=== PATIENT | male | born 1970 | race Caucasian/White ===

== ENCOUNTER 2024-08-31 21:16 | Inpatient (IN) | payer OTHER, SELFPAY ==
[2024-08-31 22:35] VITALS: TEMP 32
[2024-08-31 22:40] VITALS: BP 104/63; PULSE 76; RESP 31; TEMP 36.4; TEMP 36.7; O2SAT 95; O2SAT 96
[2024-08-31 22:43] VITALS: BP 104/63; PULSE 61; PULSE 73; RESP 25; O2SAT 95
--- NOTE | 2024-08-31 22:51 | HPE_ITS ---
Date of service: 08/31/24 Time of Service: 22:51 Assessment and Plan Assessment and plan (1) Flu: Status: Acute Assessment and plan: Influenza, complicated (apparently ) by COPD andd perhqaps pneumonia. Will continue Tamiflu and dual antibiotics, and will obtain CXR so that we have on site imaging. As to COPD, clinically appears well controlled, will not continue steroids at this point, use scheduled duonebs for now. The AF appears to be incidental, and auto rate controlled; as above not a candidate for anticoagulation. 1.Flu: Tamiflu 2. COPD: duonebs, consider steroids 3. Pneumonia?: continue Zithro and Rocephin for now; CXR 4. EtOH history: does not appear to be in active withdrawal. Monitor and place on CIWA with prn benzos History of Present Illness History of Present Illness Chief Complaint: cough, SOB Narrative: 53 male smoker with h/o alcohol abuse, bipolar, chronic pain, PTSD, prior h/o seizures Seen [facility] 3 days [facility], Flu+ but left before being seen. Returned one day [facility] with cough and SOB. W/U of note for desatrurations, + flu and possible pulmo nary infiltrates. Patient was treated with Tamiflu, Rocpehin and Zithro. Patient also received one time dose Solumedrol along with duonebs. Was on BiPap for a period of time but was not tolerating this and then had episode of vomiting (no report of aspiration), and was transitioned to high flow cannula with satisfactory saturations. Incidental finding of AF with auto rate control. [id number] score zero, no anticoagulation given. Patient was in ED hold >24 hours. Due to lack of bed availability he is accepted in transfer here. States he feels better than when he first presented, though not to baseline. States last drink 2 days ago, and has never had issue with withdrawal. Review of Systems Narrative: per HPI PFSH All Active Problems (Updated 08/31/24 @ 23:03 by Dandy Huynh MD) Flu (Acute) Social History Smoking/Tobacco Use Status: Current every day Smoking risk assessment performed?: Yes Meds Allergies and Home Medications Allergies Allergy/AdvReac Type Severity Reaction Status Date / Time cat dander Allergy Unknown Verified 08/31/24 22:55 Penicillins Allergy Unknown Verified 08/31/24 22:55 Home Medications ?Medication ?Instructions ?Recorded ?Confirmed ?Type Unknown [No Known Home Meds] 08/31/24 08/31/24 History Exam Narrative Exam Narrative: 104/63, 72, 96.4, 23, 96% HCNC. HEENT atraumatic; neck supple; lungs clear; heart irr/irr; abdomen soft and NT; extremities w/o edema; neuro Ox3, seems somewhat anxious but lucid and appropriate, moves all 4s, no tremor, asterixis or adventitial movements Time Spent Time spent with Patient: 55-74 minutes Time was spent: preparing to see the patient(eg.review tests), obtaining and/or reviewing separately otained hiistory, ordering medications,tests, procedures, referring, communicating with other health resident care assistant and indepentently interpreting results
--- NOTE | 2024-08-31 23:31 | DI.RAD_ITS ---
Exam(s) XR PORTABLE CHEST AP EXAM: XR PORTABLE CHEST AP CLINICAL HISTORY: pneumonia, hypoxia, influenza. TECHNIQUE: 2D digital imaging was performed. COMPARISON: No exams were available for comparison FINDINGS: Single AP portable view. Heart size is upper normal. The mediastinum is not widened. There are extensive bilateral interstitial and partially confluent infiltrates. No obvious pleural e ffusions evident on this AP portable view. IMPRESSION: Extensive bilateral interstitial and partially confluent infiltrates.No obvious pleural effusions. Upper normal heart size. No pleural effusions. DATA REPOSITORY: RADIATION DOSE DELIVERED:
[2024-09-01] VITALS (38 sets, daily range): BP systolic 81–120; BP diastolic 54–80; PULSE 53–103; RESP 9–32; TEMP 31–37; O2SAT 91–100
[2024-09-01] MEDS: Acetaminophen 325 MG TAB 650 MG PO ×2 (00:29→20:19)
[2024-09-01] MEDS: cefTRIAXone 1,000 MG in Normal Saline 50 ML 100 MG IVPB (00:29)
[2024-09-01] MEDS: Aspirin 325 MG TAB PO (00:30)
[2024-09-01] MEDS: diphenhydrAMINE 25 MG CAP PO ×2 (00:30→20:19)
--- NOTE | 2024-09-01 00:40 | DI.VRAD_ITS ---
PROCEDURE INFORMATION: Exam: XR Chest Exam date and time: 08/31/2024 11:25 PM Age: 53 years old Clinical indication: Other: Acute hypoxic resp failure; Pneumonia, hypoxia, influenza TECHNIQUE: Imaging protocol: Radiologic exam of the chest. Views: 1 view. COMPARISON: No relevant prior studies available. FINDINGS: Lungs: Diffuse interstitial opacities throughout both lungs, with more confluence, possibly airspace opacity, in the mid right lung. Findings are most compatible with severe hydrostatic interstitial pulmonary edema/CHF, possibly with superimposed pneumonia. Pleural spaces: Unremarkable. No pleural effusion. No pneumothorax. Heart/Mediastinum: Unremarkable. No cardiomegaly. Bones/joints: Unremarkable. IMPRESSION: Diffuse interstitial opacities throughout both lungs, with more confluence, possibly airspace opacity, in the mid right lung. Findings are most compatible with severe hydrostatic interstitial pulmonary edema/CHF, possibly with superimposed pneumonia. Dictated and Authenticated by: Bob Isidro MD. Orderin Lino Dorman MD
[2024-09-01] MEDS: AZITHROMYCIN 250 MG in Normal Saline 250 ML IVPB (03:06)
[2024-09-01] MEDS: Normal Saline Flush 10 ML SYR ×2 (04:26→19:27)
[2024-09-01] MEDS: Azithromycin 500 MG VIAL (04:26)
[2024-09-01] MEDS: Water,Injection,Sterile 10 ML VIAL (04:28)
[2024-09-01] MEDS: Normal Saline 250 ML (04:28)
[2024-09-01] MEDS: Albuterol/Ipratropium 3 ML UPD VIAL UPD ×3 (05:10→17:19)
[2024-09-01 06:05] LABS: HCT 44.4 % (40.0-50.0); HGB 15.5 g/dL (13.5-17.5); MCH 32.2 pg (27.0-33.0); MCHC 34.9 % (32.0-36.0); MCV 92 fL (80-95); MPV 10.9 fL (8.0-11.0); Platelet Count 111 10^3/uL (130-400); RBC 4.81 10^6/uL (4.36-5.78); RDW 12.9 % (11.8-14.1); RDW-SD 44.3 fL; WBC 3.54 10^3/uL (4.4-10.8)
[2024-09-01 06:20] LABS: BUN 22 mg/dL (7-18); CREATININE 0.9 mg/dL (0.70-1.30); Calcium 8.5 mg/dL (8.5-10.1); Chloride 105 mmol/L (98-107); Estimated GFR 101.49 (mL/min/1.73m2); Glucose 167 mg/dL (74-106); Potassium 4.5 mmol/L (3.5-5.1); Sodium 139 mmol/L (136-145)
[2024-09-01] MEDS: Enoxaparin 40 MG/0.4 ML SYR SC (08:33)
[2024-09-01] MEDS: Pantoprazole 40 MG TABCR PO (08:33)
[2024-09-01] MEDS: Oseltamivir 75 MG CAP PO ×2 (08:33→19:28)
--- NOTE | 2024-09-01 09:38 | INITIAL_ITS ---
Date of service: 09/01/24 Time of Service: 09:38 Care Management Initial Assmt Initial Assessment Reason for Hospitalization: Influenza and pneumonia Functional Status/Living Situation Patient Presentation: Jacques was lying in bed when CM met with him. He was pleasant in manner and agreeable to conversation. Jacques was admitted with Influenza and possible pneumonia. He is requiring highflow nasal oxygen to maintain his oxygen saturation levels in the 90s. Jacques informed that he had been sick for about a week and just kept getting worse. He went to [facility] yesterday where it was determined he needed hospitalization. Unfortunately [facility] had no beds so Jacques was transferred to [facility]. Jacques lives in [place] with his girlfriend Jermaine. He has 2 children; he has a son that he is close to and a daughter who needs help. Jacques also has a step daughter Paula that he is very close to and who came to visit today.. He works as a maple refrigeration service technician. He is independent with ADLs and does not need a cane or walker. 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 He reported that for many years he had to walk to and from work and it was [address]. Fortunately his girlfriend drives and has a care so transportation is easier now. Town of Residence: [place] Resides with: Other (girlfriend Jermaine) Significant Other/Family: Local Natural Supports: family Employment Status: Employed (maple refrigeration service technician) Instrumental Activities of Daily Living (ADLs): Independent Medications Medication Management: No Issues/Barriers identified Advance Directives Advance Directives: Do you have an Advance Directive: N 08/31/24 21:30 AD On File at [facility]: N 08/31/24 21:30 Date Asked 08/31/24 08/31/24 21:30 AD Date Reviewed COLST On File at [facility] COLST Date Scanned Code Status Resuscitation Status Full Code Portal Pt does not currently have a portal and education provided: No Portal Education: Patient declined (not from area) Insurance Coverage/Financial Issues Insurance: P Care Team Visit Care Team Role Provider Type Cal Ambriz DO Primary Care Provider NON-[facility] STAFF PHYSICIAN Dandy Huynh MD Admit Provider [facility] STAFF PHYSICIAN Attending Provider Discharge Potential Discharge Needs: PCP F/U Appt Anticipated Barriers to Discharge: None Identified Patient/Family Education Needs: Review discharge instructions, discuss Ask Me Three Transportation: Private vehicle Plan: Anticipate Dandy will be discharged home with no new services when medically cleared. He will follow up with his community providers and plan of care and transport with family. CM will follow and continue to assess for discharge needs. Social Determinants of Health Screening Social Determinants of Health last assessed: 09/01/24 Will the Patient Participate in the Screening?: Yes Do you worry about having a steady place to live?: no Problems where you live: mold In the past 12 months, have you had to go without electric, gas, oil or water in your home?: no Have you or anyone in your house had to go without enough food to eat?: no Has lack of transportation kept you from medical appointments or from doing things needed for daily living?: no Has anyone in your life made you feel unsafe or unsupported?: no How hard is it for you to pay for the very basics like food, housing, medical care, and heating? Would you say it is:: Not hard at all Do you want help finding or keeping work or a job?: I do not need or want help If for any reason you need help with day-to-day activities such as bathing, preparing meals, shopping, managing finances, etc., do you get the help you need?: I don?t need any help How often do you feel lonely or isolated from those around you?: Never Do you speak a language other than Wol[place] at home?: No Does the patient want assistance with any of the above?: No Social Determinants of Health Comments(SDGA Details): Pt reports ongoing mold issue in bathroom of his apartment that he manages himself Health Related Social Needs Health related social needs: inadequate housing (Z59.1) PFSH All Active Problems (Updated 09/01/24 @ 12:48 by Shivam Dickerson MD) Atrial fibrillation (Chronic) Pneumonia (Acute) Flu (Acute) Social History Smoking/Tobacco Use Status: Former Tobacco Use Quit Date: 08/15/24 Tobacco: How many years used: 45 Smoking risk assessment performed?: Yes Alcohol Intake: former Drug use: Daily Substance use type: marijuana Housing: apartment Do you feel safe at home: Yes Do you feel safe in your relationship?: Yes
--- NOTE | 2024-09-01 09:59 | W.NUTRFU ---
Date of service: 09/01/24 Time of Service: 09:59 Nutrition Note NOTE: pt in ICU - Influenza with COPD, PNA components. Not a lot of history on patient in chart and just admitted <24hours on precautions. Would expect lower appetite. Pt initially screened as low nutr risk With noted hx of etoh use would recommend thiamine, b12, magnesium, folate labs/repletions. would recommend 110mg zinc sulfate for immune support Will follow patient labs, weight, po intake and modify nutrition interventions as needed Time Spent in Nutritional Counseling and Treatment: 0
--- NOTE | 2024-09-01 10:30 | DI.US_ITS ---
APPROVED REPORT EXAM: Comprehensive 2D, Doppler, and color-flow Echocardiogram Patient Location: In-Patient Room/Bed: 219 Respiratory Therapist Assistant: Jermaine Bowers RDCS (AE) Indications: Afib Conclusion Normal left ventricular wall thickness and chamber size. Ejection fraction is 60%. Wall motion is n ormal Normal right ventricular size and function Mildly dilated left atrium. Normal right atrial size Aortic valve is sclerotic and trileaflet without stenosis or regurgitation Wall motion Left Ventricle The left ventricle is normal size. The left ventricular systolic function is normal. The left ventric ular ejection fraction is within the normal range. There is normal left ventricular wall thickness. T here is normal LV segmental wall motion. There is no ventricular septal defect visualized. LVEF is 60 %. Right Ventricle The right ventricle is normal size. The right ventricular systolic function is normal. Atria Left atrium is mildly dilated. The right atrium size is normal. The interatrial septum is intact with no evidence for an atrial septal defect. Aortic Valve The aortic valve is sclerotic Aortic valve is trileaflet. There is no aortic valvular stenosis. No ao rtic regurgitation is present. Mitral Valve The mitral valve is normal in structure. No evidence of mitral valve stenosis. Trace mitral regurgita tion. Tricuspid Valve The tricuspid valve is normal in structure. There is no tricuspid valve stenosis. There is no tricusp id valve regurgitation noted. Pulmonic Valve The pulmonary valve is normal in structure. There is no pulmonic valvular stenosis. There is no pulmo angelina valvular regurgitation. Great Vessels The aortic root is normal in size. Ascending aorta is not well visualized. Aortic arch is not well vi sualized. The IVC collapses <50% with inspiration. Pericardium There is no pericardial effusion. 2D Dimensions IVSD d PLAX 0.75 cm M: 0.6-1.2 Ao Root d 3.03 cm M: 3.1 - 3.7 LVPW d PLAX 0.65 cm M: 0.6 - 1.2 LVID d PLAX 5.29 cm M: 4.2 - 5.8 LVDs 3.57 cm M: 2.5 - 4.0 LV EF Teichholz 60.4 % FS 32.53 % LV EDV (Teich) 134.7 mL LV ESV (Teich) 53.3 mL Stroke Vol Index (Teich) 36.17 M-Mode TAPSE 2.53 cm (M/F) >1.7 Auto EF LV EDV A4C 133.5 mL LV EDV A2C 104.6 mL LV EDV BP 119.6 mL LV ESV A4C 53.1 mL LV ESV A2C 44.9 mL LV ESV BP 49.7 mL LVEF(%) A4C 60.2 % LVEF(%) A2C 57.1 % LVEF(%) BP 58.4 % LV SV A4C 80.4 ml LV SV A2C 59.7 ml LV SV BP 69.9 ml LV CO A4C 4.5 L/min LV CO A2C 4.0 L/min LV CO BP 4.3 L/min HR A4C 56.43 BPM HR A2C 67.17 BPM LV EDV Index (BP) LA Volume LA Length A4C 6.0 cm LA Length A2C 4.9 cm LA Area A4C s 25.21 cm2 LA Area A2C s 14.46 cm2 LA Vol A4C A-L 90.54 mL LA Vol A2C A-L 36.57 mL LA Vol Biplane A-L 63.7 mL LA Vol/BSA A4C A-L LA Vol/BSA A2C A-L LA Vol/BSA BP A-L 28.3 mL/m2 LA Vol A4C MOD 84.8 mL LA Vol A2C MOD 33.3 mL LA Vol BP MOD 58.5 mL RA Volume RA Area A4C 17.3 cm2 RA ESV A4C (A-L) 50.8mL RA Vol/BSA A4C A-L RA Length A4C 5.0 cm RA ESV A4C (MOD) 48.2mL LV Diastology MV E' medial 0.152 (>0.07 m/s) MV E Vmax 0.81 (0.4-1.3 m/s) MV E' lateral 0.149 (>0.1 m/s) Aortic Valve AoV Vmax 1.00 m/s LVOT Vmax 0.90 m/s AoV Peak Grad 4.0 mmHg LVOT Peak Grad 3.2 mmHg AoV Area (Vmax) 3.21 cm2 LVOT VTI 0.190 m AoV VTI 0.209 m LVOT Mean Grad 1.5 mmHg AoV Mean Jose. 0.67 m/s LVOT SV 68.00 mL AoV Mean Grad 2.1 mmHg LVOT Diam s 2.10 cm AoV Area (VTI) 3.26 cm2 AV Regurg Peak Gr. 4.03 mmHg Velocity Ratio 0.90 Pulmonary Valve RVOT Vmax 0.67 m/s RVOT Peak Gr. 1.8 mmHg RVOT VTI 0.143 m RVOT Mean Gr. 0.9 mmHg
--- NOTE | 2024-09-01 12:43 | W.PM.PROGNOT ---
Date of Service Date of service: 09/01/24 Time of Service: 12:44 Assessment and Plan Assessment and plan (1) Flu: Status: Acute Assessment and plan: Will continue with Tamiflu (2) Pneumonia: Status: Acute Assessment and plan: Pt is currently on zithromax and rocephin. Will recheck cbc/cmp/lactic acid (3) Atrial fibrillation: Status: Chronic Assessment and plan: Self resolution. Most likely 2/2 physiologic stress. Follow up in the outpatient setting. Will order a tsh for completeness Subjective Subjective Interval history since last seen: Pt seen and examined in the ICU this am. Pt did not have significant complaints at that time. POC d/w PT as well as with bedside nurse during ICU huddle Exam Narrative Exam Narrative: . HEENT atraumatic; neck supple; lungs clear; heart rrr no mrg at this time abdomen soft and NT; extremities w/o edema; neuro Ox3, seems somewhat anxious but lucid and appropriate, moves all 4s, no tremor, asterixis or adventitial movements Objective Last Vital Signs Temp 36.8 C 09/01/24 12:15 Pulse 61 09/01/24 12:01 Resp 22 09/01/24 12:01 BP 107/71 09/01/24 12:01 Pulse Ox 92 09/01/24 12:01 Laboratory Results - last 24 hr 09/01/24 05:09 WBC 3.54 L RBC 4.81 Hgb 15.5 Hct 44.4 MCV 92 MCH 32.2 MCHC 34.9 RDW 12.9 Plt Count 111 L MPV 10.9 Sodium 139 Potassium 4.5 Chloride 105 Carbon Dioxide 28.0 Anion Gap 6.0 BUN 22 H Creatinine 0.9 Est GFR (CKD-EPI 2020) 101.49 Glucose 167 H Calcium 8.5 Time Spent with Patient Time Spent with Patient: 35-49 minutes Time was spent: preparing to see the patient(eg.review tests), obtaining and/or reviewing separately otained hiistory, ordering medications,tests, procedures, referring, communicating with other health women's health care nurse practitioner, indepentently interpreting results, counseling the patient and care coordination
[2024-09-02] VITALS (52 sets, daily range): BP systolic 88–112; BP diastolic 49–79; PULSE 45–89; RESP 2–35; TEMP 31–37.5; O2SAT 89–100
[2024-09-02] MEDS: cefTRIAXone 1 GM/50 ML BAG IVPB (00:29)
[2024-09-02] MEDS: Albuterol/Ipratropium 3 ML UPD VIAL UPD ×5 (00:35→23:18)
[2024-09-02] MEDS: AZITHROMYCIN 250 MG in Normal Saline 250 ML IVPB (01:51)
[2024-09-02] MEDS: Normal Saline 250 ML (03:26)
[2024-09-02] MEDS: Azithromycin 500 MG VIAL (03:26)
[2024-09-02] MEDS: Normal Saline Flush 10 ML SYR (03:26)
[2024-09-02] MEDS: Water,Injection,Sterile 10 ML VIAL (03:27)
[2024-09-02 04:46] LABS: Lactate 1.8 mmol/L (<or=2.0)
[2024-09-02 04:53] LABS: Abs Immature Grans 0.11 10^3/uL (0.0-0.06); HCT 41.7 % (40.0-50.0); HGB 14.2 g/dL (13.5-17.5); MCHC 34.1 % (32.0-36.0); MCV 94 fL (80-95); MPV 10.7 fL (8.0-11.0); Platelet Count 153 10^3/uL (130-400); RBC 4.44 10^6/uL (4.36-5.78); RDW 13.1 % (11.8-14.1); RDW-SD 45.2 fL; WBC 8.15 10^3/uL (4.4-10.8)
[2024-09-02 05:19] LABS: ALT 294 U/L (16-63); AST 332 U/L (15-37); Albumin 2.1 g/dL (3.4-5.0); Alkaline Phosphatase 93 U/L (46-116); Anion Gap 4.7 mmol/L (3-11); BUN 21 mg/dL (7-18); CO2 29.3 mmol/L (21.0-32.0); CREATININE 0.8 mg/dL (0.70-1.30); Calcium 8.3 mg/dL (8.5-10.1); Chloride 106 mmol/L (98-107); Estimated GFR 105.17 (mL/min/1.73m2); Glucose 143 mg/dL (74-106); Potassium 4.5 mmol/L (3.5-5.1); Sodium 140 mmol/L (136-145); TSH (W/Ref FT4) 1.11 uIU/mL (0.36-3.74); Total Protein 5.4 g/dL (6.4-8.2)
[2024-09-02 05:33] LABS: Absolute Neutrophil Count 6.28 10^3/uL (1.2-6.7)
[2024-09-02 05:34] LABS: Absolute Lymphocyte Count 1.47 10^3/uL (1.2-3.4); Absolute Monocyte Count 0.41 10^3/uL (0.1-0.8); Atypical Lymphocytes % 4 %; Diff Comment Manual Differential; RBC Morphology Normal
[2024-09-02] MEDS: Pantoprazole 40 MG TABCR PO (08:26)
[2024-09-02] MEDS: Oseltamivir 75 MG CAP PO ×2 (08:26→20:09)
[2024-09-02] MEDS: Enoxaparin 40 MG/0.4 ML SYR SC (08:27)
--- NOTE | 2024-09-02 09:54 | CMPROGNOTE_ITS ---
Date of service: 09/02/24 Time of Service: 09:54 Care Management Progress Note Progress Note Text Progress Note Text: Dandy was sitting up in bed when CM met with him. He shared that he is feeling a bit better today. He got up in a chair for breakfast but was tired out by the activity and needed to rest. He is still on high flow nasal oxygen at 50 L/min with oxygen saturation in the mid to upper 90s. His CIWA scores have been 0 all day. CM will follow. Discharge Potential Discharge Needs: PCP F/U Appt Anticipated Barriers to Discharge: None Identified Patient/Family Education Needs: Review discharge instructions, discuss Ask Me Three Transportation: Private vehicle Plan: Anticipate Dandy will be discharged home with no new services when medically cleared. He will follow up with his community providers and plan of care and transport with family. CM will continue to assess for discharge needs. Social Determinants of Health Screening Social Determinants of Health last assessed: 09/02/24 Will the Patient Participate in the Screening?: Yes Do you worry about having a steady place to live?: no Problems where you live: mold In the past 12 months, have you had to go without electric, gas, oil or water in your home?: no Have you or anyone in your house had to go without enough food to eat?: no Has lack of transportation kept you from medical appointments or from doing things needed for daily living?: no Has anyone in your life made you feel unsafe or unsupported?: no How hard is it for you to pay for the very basics like food, housing, medical care, and heating? Would you say it is:: Not hard at all Do you want help finding or keeping work or a job?: I do not need or want help If for any reason you need help with day-to-day activities such as bathing, preparing meals, shopping, managing finances, etc., do you get the help you need?: I don?t need any help How often do you feel lonely or isolated from those around you?: Never Do you speak a language other than Maltese at home?: No Does the patient want assistance with any of the above?: No Social Determinants of Health Comments(SDOH Details): Pt reports ongoing mold issue in bathroom of his apartment that he manages himself Health Related Social Needs Health related social needs: inadequate housing (Z59.1)
--- NOTE | 2024-09-02 10:01 | PGE_ITS ---
Date of Service Date of service: 09/02/24 Time of Service: 10:01 Assessment and Plan Assessment and plan (1) Sepsis: Status: Acute Assessment and plan: - Patient met criteria for sepsis on admission with heart rate greater than 100, respiratory rate in the 20s, source of infection being a combination of influenza A positive and community-acquired pneumonia; did not meet criteria for severe sepsis as there were no signs of endorgan damage -Has been on Tamiflu, will continue -Has been on azithromycin and Rocephin, will continue (2) Flu: Status: Acute Assessment and plan: -Will continue with Tamiflu (3) Pneumonia: Status: Acute Assessment and plan: -Pt is currently on zithromax and rocephin, will continue (4) Acute respiratory failure with hypoxia: Status: Acute Assessment and plan: - Secondary to accommodation of influenza A positive, community-acquired pneumonia, and patient having stated he quit smoking about 2 weeks ago -Patient feels significantly less short of breath though has been on about 60% FiO2 on high flow nasal cannula -Wean as tolerated with a goal oxygen saturation greater than 92% (5) Atrial fibrillation: Status: Chronic Assessment and plan: -Present on admission, though resolved on its own -Most likely 2/2 physiologic stress. -Patient otherwise does not meet criteria for anticoagulation as his [id number]- VASc 2 score was 0 Subjective Subjective Interval history since last seen: Patient states that his breathing is better today but that he is rather tired. Otherwise he is no complaints or concerns at this time. Exam Narrative Exam Narrative: Well appearing gentleman sitting up in the chair in no acute distress, 63% HFNC in place, heart RRR, lungs CTAB, abdomen soft, non-tender, non-distended Objective Last Vital Signs Temp 97.7 F 09/02/24 08:30 Pulse 57 L 09/02/24 08:01 Resp 16 09/02/24 08:01 BP 111/59 L 09/02/24 08:01 Pulse Ox 92 09/02/24 08:01 Laboratory Results - last 24 hr 09/02/24 04:35 WBC 8.15 RBC 4.44 Hgb 14.2 Hct 41.7 MCV 94 MCH 32.0 MCHC 34.1 RDW 13.1 Plt Count 153 MPV 10.7 Immature Gran % 0.0 Neutrophils % 77.0 Lymphocytes % 14.0 Atypical Lymphs % 4 Monocytes % 5.0 Eosinophils % 0.0 Basophils % 0.0 Nucleated RBC % 0.0 Absolute Neutrophils 6.28 Absolute Lymphocytes 1.47 Absolute Monocytes 0.41 Absolute Eosinophils 0.00 Absolute Basophils 0.00 RBC Morphology Normal VBG Lactate 1.8 Sodium 140 Potassium 4.5 Chloride 106 Carbon Dioxide 29.3 Anion Gap 4.7 BUN 21 H Creatinine 0.8 Est GFR (CKD-EPI 2020) 105.17 Glucose 143 H Calcium 8.3 L Total Bilirubin 0.30 AST 332 H ALT 294 H Alkaline Phosphatase 93 Total Protein 5.4 L Albumin 2.1 L TSH 1.11 Time Spent with Patient Time Spent with Patient: >50 minutes Time was spent: preparing to see the patient(eg.review tests), obtaining and/or reviewing separately otained hiistory, ordering medications,tests, procedures, referring, communicating with other health pediatric critical care nurse, indepentently interpreting results, counseling the patient and care coordination
[2024-09-02] MEDS: diphenhydrAMINE 25 MG CAP PO (20:09)
[2024-09-02] MEDS: Acetaminophen 325 MG TAB 650 MG PO (20:09)
[2024-09-03] VITALS (29 sets, daily range): BP systolic 91–118; BP diastolic 49–85; PULSE 52–108; RESP 8–33; TEMP 36.6–37.9; O2SAT 89–98
[2024-09-03] MEDS: cefTRIAXone 1 GM/50 ML BAG IVPB (00:24)
[2024-09-03] MEDS: Albuterol/Ipratropium 3 ML UPD VIAL UPD ×3 (05:10→17:50)
[2024-09-03 06:25] LABS: HCT 38.8 % (40.0-50.0); HGB 13.2 g/dL (13.5-17.5); MCH 31.9 pg (27.0-33.0); MCV 94 fL (80-95); MPV 10.5 fL (8.0-11.0); Platelet Count 155 10^3/uL (130-400); RBC 4.14 10^6/uL (4.36-5.78); RDW 13.1 % (11.8-14.1); RDW-SD 45.1 fL; WBC 6.14 10^3/uL (4.4-10.8)
[2024-09-03 06:51] LABS: Anion Gap 6.3 mmol/L (3-11); BUN 16 mg/dL (7-18); CO2 27.7 mmol/L (21.0-32.0); CREATININE 0.9 mg/dL (0.70-1.30); Calcium 8.1 mg/dL (8.5-10.1); Chloride 106 mmol/L (98-107); Estimated GFR 101.49 (mL/min/1.73m2); Glucose 104 mg/dL (74-106); Sodium 140 mmol/L (136-145)
[2024-09-03] MEDS: Normal Saline Flush 10 ML SYR (07:32)
[2024-09-03] MEDS: Pantoprazole 40 MG TABCR PO (07:32)
[2024-09-03] MEDS: Oseltamivir 75 MG CAP PO ×2 (07:32→22:44)
[2024-09-03] MEDS: Enoxaparin 40 MG/0.4 ML SYR SC (07:32)
[2024-09-03] MEDS: Azithromycin 250 MG TAB PO (07:33)
--- NOTE | 2024-09-03 09:38 | CMPROGNOTE_ITS ---
Date of service: 09/03/24 Time of Service: 09:38 Care Management Progress Note Progress Note Text Progress Note Text: Dandy is here with acute hypoxic respiratory failure and continues to require ICU level care. He was able to transition off [place] O2 yesterday and his O2 Sat is currently 95% on 4L NC. At this time he is lying in bed with his eyes closed and appears to be sleeping comfortably. He will not be medically ready for discharge today, per provider, therefor CM did not wake him. Discharge Potential Discharge Needs: PCP F/U Appt Anticipated Barriers to Discharge: Medical Status Patient/Family Education Needs: Review discharge instructions, discuss Ask Me Three Transportation: Private vehicle Plan: Anticipate Dandy will be discharged home with no new services when medically cleared. He will follow up with his community providers and plan of care and transport with family. CM will continue to assess for discharge needs. Social Determinants of Health Screening Social Determinants of Health last assessed: 09/03/24 Will the Patient Participate in the Screening?: Yes Do you worry about having a steady place to live?: no Problems where you live: mold In the past 12 months, have you had to go without electric, gas, oil or water in your home?: no Have you or anyone in your house had to go without enough food to eat?: no Has lack of transportation kept you from medical appointments or from doing things needed for daily living?: no Has anyone in your life made you feel unsafe or unsupported?: no How hard is it for you to pay for the very basics like food, housing, medical care, and heating? Would you say it is:: Not hard at all Do you want help finding or keeping work or a job?: I do not need or want help If for any reason you need help with day-to-day activities such as bathing, preparing meals, shopping, managing finances, etc., do you get the help you need?: I don?t need any help How often do you feel lonely or isolated from those around you?: Never Do you speak a language other than [place] at home?: No Does the patient want assistance with any of the above?: No Social Determinants of Health Comments(SDOH Details): Pt reports ongoing mold issue in bathroom of his apartment that he manages himself Health Related Social Needs Health related social needs: inadequate housing (Z59.1)
--- NOTE | 2024-09-03 13:17 | PGE_ITS ---
Date of Service Date of service: 09/03/24 Time of Service: 13:17 Assessment and Plan Assessment and plan (1) Sepsis: Status: Acute Assessment and plan: - Patient met criteria for sepsis on admission with heart rate greater than 100, respiratory rate in the 20s, source of infection being a combination of influenza A positive and community-acquired pneumonia; did not meet criteria for severe sepsis as there were no signs of endorgan damage -Has been on Tamiflu, will continue -Has been on azithromycin and Rocephin, will continue (2) Flu: Status: Acute Assessment and plan: -Will continue with Tamiflu (3) Pneumonia: Status: Acute Assessment and plan: -Pt is currently on zithromax and rocephin, will continue (4) Acute respiratory failure with hypoxia: Status: Acute Assessment and plan: - Secondary to accommodation of influenza A positive, community-acquired pneumonia, and patient having stated he quit smoking about 2 weeks ago -Patient feels significantly better, had been on HFNC up to 65% but has since transitioned to 4L NC as of late AM 09/03 -Wean as tolerated with a goal oxygen saturation greater than 92% (5) Atrial fibrillation: Status: Chronic Assessment and plan: -Present on admission, though resolved on its own -Most likely 2/2 physiologic stress. -Patient otherwise does not meet criteria for anticoagulation as his [id number]- VASc 2 score was 0 Subjective Subjective Interval history since last seen: Patient states that he is feeling much better and is happy that he is no long on HFNC. Exam Narrative Exam Narrative: Well appearing gentleman sitting up in the chair in no acute distress, 4L NC in place, heart RRR, lungs CTAB, abdomen soft, non-tender, non-distended Objective Last Vital Signs Temp 98.6 F 09/03/24 07:40 Pulse 65 09/03/24 11:05 Resp 30 H 09/03/24 11:05 BP 96/64 L 09/03/24 04:01 Pulse Ox 95 09/03/24 11:05 Laboratory Results - last 24 hr 09/03/24 05:28 WBC 6.14 RBC 4.14 L Hgb 13.2 L Hct 38.8 L MCV 94 MCH 31.9 MCHC 34.0 RDW 13.1 Plt Count 155 MPV 10.5 Sodium 140 Potassium 4.0 Chloride 106 Carbon Dioxide 27.7 Anion Gap 6.3 BUN 16 Creatinine 0.9 Est GFR (CKD-EPI 2020) 101.49 Glucose 104 Calcium 8.1 L Time Spent with Patient Time Spent with Patient: >50 minutes Time was spent: preparing to see the patient(eg.review tests), obtaining and/or reviewing separately otained hiistory, ordering medications,tests, procedures, referring, communicating with other health home health aide caregiver, indepentently interpreting results, counseling the patient and care coordination
[2024-09-03] MEDS: Melatonin 3 MG TAB 9 MG PO (18:34)
[2024-09-03] MEDS: diphenhydrAMINE 25 MG CAP PO (18:34)
--- NOTE | 2024-09-03 18:51 | NUR.NOTE ---
Nursing Note: Pt temp 37.9 @2395. Pt declines any antipyretic medications
[2024-09-04] MEDS: Albuterol/Ipratropium 3 ML UPD VIAL UPD ×2 (00:21→06:16)
[2024-09-04] MEDS: cefTRIAXone 1 GM/50 ML BAG IVPB (00:22)
[2024-09-04 03:06] VITALS: BP 101/60; PULSE 72; RESP 18; TEMP 37.3; O2SAT 94
--- NOTE | 2024-09-04 05:39 | W.PC.ACHO ---
Registration Status: Primary Language: Preferred Language: Most Recent Vital Signs Temperature 37.3 C 09/04/24 03:06 Temperature Source Tympanic 09/04/24 03:06 Pulse 72 09/04/24 03:06 Pulse 67 09/03/24 14:01 Respiratory Rate 18 09/04/24 03:06 Respiratory Effort Normal 08/31/24 22:40 Respiratory Depth Normal 08/31/24 22:40 Respiratory Pattern Normal 08/31/24 22:40 Blood Pressure 101/60 09/04/24 03:06 Blood Pressure Mean 84 09/03/24 16:01 Pulse Oximetry 94 09/04/24 03:06 Oxygen Delivery Method Nasal Cannula 09/04/24 03:06 Oxygen Flow Rate 4 09/04/24 03:06 Fraction of Inspired Oxygen (FIO2) 41 09/02/24 16:30 Pain Level 0 09/04/24 03:06 Comment Pt temp low due to some sweating while asleep. Pt reports that sweating while asleep is baseline for him. 09/02/24 00:35 Allergies cat dander Allergy (Verified 08/31/24 22:55) Unknown Penicillins Allergy (Verified 08/31/24 22:55) Unknown Active Medications Generic Name Dose Route Start Last Admin Trade Name Freq PRN Reason Stop Dose Admin Acetaminophen 650 mg 08/31/24 23:14 09/02/24 20:09 Acetaminophen 325 Mg Tab PO 650 mg Q4H PRN PRN Administration Albuterol/Ipratropium 3 ml 09/01/24 00:00 09/04/24 00:21 Albuterol/Ipratropium 3 Ml Upd Vial UPD 3 ml Q6H DONALD Administration Azithromycin 250 mg 09/03/24 08:30 09/03/24 07:33 Azithromycin 250 Mg Tab PO 250 mg DAILY DONALD Administration Chlordiazepoxide HCl 25 mg 09/01/24 08:30 09/03/24 22:44 Chlordiazepoxide 25 Mg Cap PO Not Given QID DONALD Diphenhydramine HCl 25 mg 08/31/24 23:34 09/03/24 18:34 Diphenhydramine 25 Mg Cap PO 25 mg HS PRN PRN Administration Enoxaparin Sodium 40 mg 09/01/24 08:30 09/03/24 07:32 Enoxaparin 40 Mg/0.4 Ml Syr SC 40 mg DAILY DONALD Administration Ceftriaxone Sodium/Dextrose 1 gm in 50 mls @ 100 mls/hr 09/02/24 00:00 09/04/24 01:00 Rocephin IVPB Infused Q24H DONALD Infusion Melatonin 9 mg 09/03/24 20:00 09/03/24 18:34 Melatonin 3 Mg Tab PO 9 mg HS DONALD Administration Oseltamivir Phosphate 75 mg 09/01/24 08:30 09/03/24 22:44 Oseltamivir 75 Mg Cap PO 75 mg BID DONALD Administration Pantoprazole Sodium 40 mg 09/01/24 07:30 09/03/24 07:32 Pantoprazole 40 Mg Tabcr PO 40 mg DAILY@0730 DONALD Administration IV IV Catheter Type [Right Saline Lock Antecubital] IV Catheter Gauge [Right 18 Antecubital] Diagnostics 09/03/24 Range/Units 05:28 WBC 6.14 (4.4-10.8) 10^3/uL RBC 4.14 L (4.36-5.78) 10^6/uL Hgb 13.2 L (13.5-17.5) g/dL Hct 38.8 L (40.0-50.0) % MCV 94 (80-95) fL MCH 31.9 (27.0-33.0) pg MCHC 34.0 (32.0-36.0) % RDW 13.1 (11.8-14.1) % Plt Count 155 (130-400) 10^3/uL MPV 10.5 (8.0-11.0) fL Sodium 140 (136-145) mmol/L Potassium 4.0 (3.5-5.1) mmol/L Chloride 106 (98-107) mmol/L Carbon Dioxide 27.7 (21.0-32.0) mmol/L Anion Gap 6.3 (3-11) mmol/L BUN 16 (7-18) mg/dL Creatinine 0.9 (0.70-1.30) mg/dL Est GFR (CKD-EPI 2020) 101.49 (mL/min/1.73m2) Glucose 104 (74-106) mg/dL Calcium 8.1 L (8.5-10.1) mg/dL Intake and Output - 24 Hour Total 08/31/24 thru 09/04/24 01:00 Intake Total 3710 Output Total 3975 Balance -265 Weight 94.1 kg Intake: IV 950 Oral 2760 Output: Urine 3975 Other: Urine Color Yellow Urine Appearance Clear Urine Odor None Comment Mixed with stool. Stool Size Moderate Stool Characteristics Liquid [place] Risk Assessment History of Falls No History 08/31/24 22:40 Contributing Factors Unstable,Incontinence 08/31/24 22:40 Ambulatory Aids Independent 08/31/24 22:40 Tubes/Lines W/no contributing factors 08/31/24 22:40 Gait Evaluation No gait disturbance 08/31/24 22:40 Cognition No cognitive impairment 08/31/24 22:40 Fall Total Score 16 08/31/24 22:40 Level of Risk Standard/Low Risk 08/31/24 22:40 Problems (Last Reviewed 08/31/24 @ 23:00 by Dandy Huynh MD) Sepsis (Acute) Acute respiratory failure with hypoxia (Acute) Atrial fibrillation (Chronic) Pneumonia (Acute) Flu (Acute) Notes 09/03/24 18:51 Nursing Notes by Jennifer Ramirez Nursing Note: Pt temp 37.9 @1840. Pt declines any antipyretic medications Initialized on 09/03/24 18:51 - END OF NOTE v v v v v v v v v Sending and/or Receiving Nurses: Please use comment section below to note any information pertinent to the patient hand-off not included above. Information / Comments: received report from Renata MAYBERRY at [phone]. Pt transferred to floor via wheelchair on 4L NC. Patient without complaints, assessment completed, and meds given according to MAR. Report received from:
[2024-09-04] MEDS: Pantoprazole 40 MG TABCR PO (07:48)
[2024-09-04] MEDS: Oseltamivir 75 MG CAP PO (07:48)
[2024-09-04] MEDS: Azithromycin 250 MG TAB PO (07:49)
[2024-09-04] MEDS: Enoxaparin 40 MG/0.4 ML SYR SC (07:49)
[2024-09-04] MEDS: Normal Saline Flush 10 ML SYR IVP (07:53)
[2024-09-04 07:57] VITALS: BP 122/73; PULSE 74; RESP 16; TEMP 35.8; O2SAT 93
--- NOTE | 2024-09-04 09:59 | PDOC.CMPRO ---
Date of service: 09/04/24 Time of Service: 09:59 Care Management Progress Note Progress Note Text Progress Note Text: Dandy was sitting on the side of his bed when CM met with him. He Discharge Potential Discharge Needs: PCP F/U Appt Anticipated Barriers to Discharge: None Identified Patient/Family Education Needs: Review discharge instructions, discuss Ask Me Three Transportation: Private vehicle Plan: Anticipate Dandy will be discharged home with no new services when medically cleared. He will follow up with his community providers and plan of care and transport with family. CM will continue to assess for discharge needs. Social Determinants of Health Screening Social Determinants of Health last assessed: 09/04/24 Will the Patient Participate in the Screening?: Yes Do you worry about having a steady place to live?: no Problems where you live: mold In the past 12 months, have you had to go without electric, gas, oil or water in your home?: no Have you or anyone in your house had to go without enough food to eat?: no Has lack of transportation kept you from medical appointments or from doing things needed for daily living?: no Has anyone in your life made you feel unsafe or unsupported?: no How hard is it for you to pay for the very basics like food, housing, medical care, and heating? Would you say it is:: Not hard at all Do you want help finding or keeping work or a job?: I do not need or want help If for any reason you need help with day-to-day activities such as bathing, preparing meals, shopping, managing finances, etc., do you get the help you need?: I don?t need any help How often do you feel lonely or isolated from those around you?: Never Do you speak a language other than [place] at home?: No Does the patient want assistance with any of the above?: No Social Determinants of Health Comments(SDSD Details): Pt reports ongoing mold issue in bathroom of his apartment that he manages himself Health Related Social Needs Health related social needs: inadequate housing (Z59.1)
[2024-09-04 12:18] VITALS: PULSE 84; PULSE 85; PULSE 97; PULSE 98; RESP 18; RESP 20; O2SAT 86; O2SAT 90
[2024-09-04 12:22] VITALS: O2SAT 90
--- NOTE | 2024-09-04 12:22 | RESPIRATORY ---
Pt will be discharged home today with new O2 prescription of 1L with ambulation, RA at rest through [employer], and will be issued [employer] POC from consignment closet. SN# [id number].
--- NOTE | 2024-09-04 12:24 | W.PM.DS.N ---
Date of service: 09/04/24 Time of Service: 12:24 DS: Diagnosis Discharge Diagnosis (1) Sepsis: Status: Acute (2) Flu: Status: Acute (3) Pneumonia: Status: Acute (4) Acute respiratory failure with hypoxia: Status: Acute (5) Atrial fibrillation: Status: Chronic (6) COPD (chronic obstructive pulmonary disease): Status: Chronic Discharge Plan Disposition Patient Disposition: Home Condition: Good Discharge Details Reason For Visit: acute hypoxic resp failure Admit Date/Time: 08/31/24 21:16 Admit Provider: Dandy Huynh Attending Provider: Dandy Huynh [facility] Course: Patient initially presented with shortness of breath secondary to sepsis from flu and CAP. He was treated with azithro and CTX as well as tamiflu, and was initially on HFNC. However, his O2 requirements improved, but he was found to continue to require 1L NC with ambulation. It was also found that he has a history of COPD which will qualify him for home oxygen. Given his overall improvement it was determined that he was stable for discharge home with home Oxygen. Home Meds and New Rx's Prescriptions: No Action No Known Home Meds Discharge Instructions Activity:: Activity as Tolerated Equipment/Supplies:: Oxygen (L/min Below) Diet:: As Tolerated Discharge Orders Discharge Orders: Discharge Order (Routine); Ordered 09/04/24 Ordered By: Dudley Shay DS: Summary Time Spent with Patient providing and/or coordinating discharge services: Greater than 30 minutes Status at Discharge Functional status at discharge: independent ambulation Overall status at discharge: patient is back to baseline Mental Status: mental status grossly normal Speech and Movement: speech and movement normal Mood: congruent mood Affect: normal affect Quality:SDOH Health Related Social Needs: Health related social needs inadequate housing (Z59.1) Exam Narrative Exam Narrative: Well appearing gentleman sitting up in the chair in no acute distress, without NC at rest, heart RRR, lungs CTAB, abdomen soft, non-tender, non-distended Psych Mental Status: mental status grossly normal Speech and Movement: speech and movement normal Mood: congruent mood Affect: normal affect DS: Data Vitals/I&O Vitals and I&O: Vital Signs Temperature 96.4 F L 09/04/24 07:57 Temperature Source Temporal Artery Scan 09/04/24 07:57 Pulse 74 09/04/24 07:57 Pulse 67 09/03/24 14:01 Respiratory Rate 16 09/04/24 07:57 Respiratory Effort Normal 08/31/24 22:40 Respiratory Depth Normal 08/31/24 22:40 Respiratory Pattern Normal 08/31/24 22:40 Blood Pressure 122/73 09/04/24 07:57 Blood Pressure Mean 84 09/03/24 16:01 Pulse Oximetry 90 L 09/04/24 12:22 Oxygen Delivery Method Room Air 09/04/24 12:22 Oxygen Flow Rate 0 09/04/24 12:22 Fraction of Inspired Oxygen (FIO2) 41 09/02/24 16:30 Pain Level 0 09/04/24 07:57 Comment Pt temp low due to some sweating while asleep. Pt reports that sweating while asleep is baseline for him. 09/02/24 00:35 Intake & Output 09/03/24 09/04/24 09/04/24 17:59 05:59 17:59 Intake Total 860 / 860 350 / 1210 Output Total 875 / 875 550 / 550 Balance -15 / -15 350 / 335 -550 / -550 Weight 207 lb 3.752 oz Intake: IV 50 / 50 Oral 860 / 860 300 / 1160 Output: Urine 875 / 875 550 / 550 Other: Urine Color Yellow Dark Joanna Urine Appearance Clear Clear Stool Size Moderate Stool Characteristics Liquid Brown PFSH All Active Problems (Updated 09/04/24 @ 12:25 by Dudley Shay MD) COPD (chronic obstructive pulmonary disease) (Chronic) Sepsis (Acute) Acute respiratory failure with hypoxia (Acute) Atrial fibrillation (Chronic) Pneumonia (Acute) Flu (Acute) Social History Smoking/Tobacco Use Status: Former Tobacco Use Quit Date: 08/15/24 Tobacco: How many years used: 45 Smoking risk assessment performed?: Yes Alcohol Intake: former Drug use: Daily Substance use type: marijuana Housing: apartment Do you feel safe at home: Yes Do you feel safe in your relationship?: Yes Time Spent with Patient Time Spent with Patient: <45 minutes Time was spent: preparing to see the patient(eg.review tests), obtaining and/or reviewing separately otained hiistory, ordering medications,tests, procedures, referring, communicating with other health care management assistant, indepentently interpreting results, counseling the patient and care coordination
--- NOTE | 2024-09-04 12:26 | W.PM.DS.N ---
Date of service: 09/04/24 Time of Service: 12:26 DS: Diagnosis Discharge Diagnosis (1) Sepsis: Status: Acute (2) Flu: Status: Acute (3) Pneumonia: Status: Acute (4) Acute respiratory failure with hypoxia: Status: Acute (5) Atrial fibrillation: Status: Chronic (6) COPD (chronic obstructive pulmonary disease): Status: Chronic Discharge Plan Disposition Patient Disposition: Home Condition: Good Discharge Details Reason For Visit: acute hypoxic resp failure Admit Date/Time: 08/31/24 21:16 Admit Provider: Dandy Huynh Attending Provider: Dandy Huynh [facility] Course: Patient initially presented with shortness of breath secondary to sepsis from flu and CAP. He was treated with azithro and CTX as well as tamiflu, and was initially on HFNC. However, his O2 requirements improved, but he was found to continue to require 1L NC with ambulation. It was also found that he has a history of COPD which will qualify him for home oxygen. Given his overall improvement it was determined that he was stable for discharge home with home Oxygen. Home Meds and New Rx's Prescriptions: No Action No Known Home Meds Discharge Instructions Activity:: Activity as Tolerated Equipment/Supplies:: Oxygen (L/min Below) Diet:: As Tolerated Discharge Orders Discharge Orders: Discharge Order (Routine); Ordered 09/04/24 Ordered By: Dudley Shay DS: Summary Quality:SDOH Health Related Social Needs: Health related social needs inadequate housing (Z59.1) DS: Data Vitals/I&O Vitals and I&O: Vital Signs Temperature 96.4 F L 09/04/24 07:57 Temperature Source Temporal Artery Scan 09/04/24 07:57 Pulse 74 09/04/24 07:57 Pulse 67 09/03/24 14:01 Respiratory Rate 16 09/04/24 07:57 Respiratory Effort Normal 08/31/24 22:40 Respiratory Depth Normal 08/31/24 22:40 Respiratory Pattern Normal 08/31/24 22:40 Blood Pressure 122/73 09/04/24 07:57 Blood Pressure Mean 84 09/03/24 16:01 Pulse Oximetry 90 L 09/04/24 12:22 Oxygen Delivery Method Room Air 09/04/24 12:22 Oxygen Flow Rate 0 09/04/24 12:22 Fraction of Inspired Oxygen (FIO2) 41 09/02/24 16:30 Pain Level 0 09/04/24 07:57 Comment Pt temp low due to some sweating while asleep. Pt reports that sweating while asleep is baseline for him. 09/02/24 00:35 Intake & Output 09/03/24 09/04/24 09/04/24 17:59 05:59 17:59 Intake Total 860 / 860 350 / 1210 Output Total 875 / 875 550 / 550 Balance -15 / -15 350 / 335 -550 / -550 Weight 207 lb 3.752 oz Intake: IV 50 / 50 Oral 860 / 860 300 / 1160 Output: Urine 875 / 875 550 / 550 Other: Urine Color Yellow Dark Joanna Urine Appearance Clear Clear Stool Size Moderate Stool Characteristics Liquid Brown PFSH All Active Problems (Updated 09/04/24 @ 12:25 by Dudley Shay MD) COPD (chronic obstructive pulmonary disease) (Chronic) Sepsis (Acute) Acute respiratory failure with hypoxia (Acute) Atrial fibrillation (Chronic) Pneumonia (Acute) Flu (Acute) Social History Smoking/Tobacco Use Status: Former Tobacco Use Quit Date: 08/15/24 Tobacco: How many years used: 45 Smoking risk assessment performed?: Yes Alcohol Intake: former Drug use: Daily Substance use type: marijuana Housing: apartment Do you feel safe at home: Yes Do you feel safe in your relationship?: Yes
--- NOTE | 2024-09-04 12:32 | PDOC.CMDIS ---
Date of service: 09/04/24 Time of Service: 12:32 LACE Index Scoring Tool Questions: Length of Stay (in days): 4 - 6 Was the patient admitted via the E.D.?: Yes Comorbidities: Chronic Pulmonary Disease E.D. Visits: 1 Answers: Total Score: 10 Risk of Readmission: High Risk Care Management Discharge Plan Reason for Hospitalization: COPD Discharge Plan: Dandy will be discharged home with new home oxygen. He will have 1L/min of O2 ordered for use with activity; his O2 saturation is in the 90s at rest. He will follow up with his community providers and plan of care and transport with family. Patient/Family Education Needs: Review of discharge instructions, limitations, follow up plan, discuss Ask Me Three. SDOH Health Related Social Needs: Health related social needs inadequate housing (Z59.1)
== END 2024-09-04 13:02 | disposition home or self-care (01) | DRG 871 ==
LOC: ICU 09-03 13:27 → MS 09-03 23:06
PROVIDERS: Hospitalist; Admitting Provider General Practice; PCP Specialist/Technologist Athletic Trainer; Responsible Provider Family Medicine; Visit Provider General Practice
DX: J10.00 Influenza due to other identified influenza virus with unspecified type of pneumonia (principal); J96.01 Acute respiratory failure with hypoxia; A41.89 Other specified sepsis; J18.9 Pneumonia, unspecified organism; J44.0 Chronic obstructive pulmonary disease with (acute) lower respiratory infection; F10.10 Alcohol abuse, uncomplicated; F31.9 Bipolar disorder, unspecified; G89.29 Other chronic pain; F43.10 Post-traumatic stress disorder, unspecified; I48.91 Unspecified atrial fibrillation; Z87.891 Personal history of nicotine dependence
CPT/HCPCS: 00123; 36415; 80048; 80053; 85027; 94618; 94761; J1650; 71045; 83605; 84443; 85025; 93306; 94640; 94760; 99223; 99233; 99239; J0456; J0696; J7620